=== PATIENT | female | born 1950 | race African-American/Black ===

== ENCOUNTER → 2017-07-14 | Outpatient (CLI) | payer OTHER | END | disposition home or self-care (01) | LOC: NM 08:35 | DX: R93.1 Abnormal findings on diagnostic imaging of heart and coronary circulation (principal); I10 Essential (primary) hypertension; E78.00 Pure hypercholesterolemia, unspecified | CPT/HCPCS: 78452; 93017; 96374; 96376; A9500 ==

== ENCOUNTER → 2017-12-28 | Outpatient (CLI) | payer OTHER ==
[2017-12-29 15:20] LABS: BASO % 1 % (0-3); EOS % 0 % (0-3); HEMATOCRIT 32.5 % (36.0-47.0); LYMPH # 0.9 x10^3/uL (1.0-4.8); LYMPH % 27 % (24-48); MEAN CORPUSCULAR HEMOGLOBIN 31 pg (25-35); MEAN CORPUSCULAR HGB CONC 34 g/dL (31-37); MEAN CORPUSCULAR VOLUME 91 fL (79-100); MONO # 0.5 x10^3/uL (0.0-1.1); MONO % 15 % (0-9); NEUT # 1.9 x10^3uL (1.8-7.7); NEUT % 57 % (31-73); PLATELET COUNT 201 x10^3/uL (140-400); RED BLOOD COUNT 3.56 x10^6/uL (3.50-5.40); RED CELL DISTRIBUTION WIDTH 13.8 % (11.5-14.5); WHITE BLOOD COUNT 3.4 x10^3/uL (4.0-11.0)
[2017-12-29 15:35] LABS: ALBUMIN 3.5 g/dL (3.4-5.0); CREATININE 1.5 mg/dL (0.6-1.0); GFR 41.7; PHOSPHORUS 3.1 mg/dL (2.6-4.7); POTASSIUM 4.5 mmol/L (3.5-5.1)
[2017-12-30 04:20] LABS: PHOSPHORUS PTH 2.7 mg/dL (2.5-4.5); PTH INTACT 75 pg/mL (15-65); TOTAL SERUM CREATININE 1.45 mg/dL (0.57-1.00); TOTAL URINE CREATININE 121.7 mg/dL (Not Estab.); UR PROTEIN 21.6 mg/dL (Not Estab.)
== END | disposition home or self-care (01) ==
LOC: LAB 10:36
PROVIDERS: ATTEND Internal Medicine Nephrology
DX: I12.9 Hypertensive chronic kidney disease with stage 1 through stage 4 chronic kidney disease, or unspecified chronic kidney disease (principal); E11.22 Type 2 diabetes mellitus with diabetic chronic kidney disease; N18.2 Chronic kidney disease, stage 2 (mild); E11.65 Type 2 diabetes mellitus with hyperglycemia; Z68.34 Body mass index [BMI] 34.0-34.9, adult
CPT/HCPCS: 36415; 80069; 82575; 83970; 84156; 85025

== ENCOUNTER → 2019-11-24 | Outpatient (CLI) | payer OTHER ==
--- NOTE | 2019-11-24 13:03 | CARD ---
MR#: [id number] Date of Study: 11/24/2019 Ordering Physician: VICTOR HUGO MCELROY, Referring Physician: VICTOR HUGO MCELROY, Tech: Johana Garcia [facility] APPROVED REPORT EXAM: Two-dimensional and M-mode echocardiogram with Doppler and color Doppler. Other Information Quality : Good INDICATION Hypertension/HCVD 2D DIMENSIONS RVDd2.7 (2.9-3.5cm)Left Atrium(2D)3.7 (1.6-4.0cm) IVSd1.5 (0.7-1.1cm)Aortic Root(2D)3.2 (2.0-3.7cm) LVDd5.0 (3.9-5.9cm)LVOT Diameter2.2 (1.8-2.4cm) PWd1.3 (0.7-1.1cm)LVDs3.1 (2.5-4.0cm) FS (%) 30.0 %SV77.8 ml Aortic Valve AoV Peak Sander.128.1cm/sAoV VTI25.5cm AO Peak GR.6.6mmHgLVOT Peak Sander.137.5cm/s AO Mean GR.3mmHgAVA (VMAX)4.07cm2 NAT (VTI)4.00cm2 Mitral Valve MV E Yeigibnb10.8cm/sMV DECEL GFHK359kn MV A Fjuayivh54.7cm/sE/A Ratio1.1 Tricuspid Valve TR P. Awirjrdq531gk/sRAP [id number] TR Peak Gr.17mzAeBSAZ89kwGr Pulmonary Vein S1 Ydqrbblu73.6cm/sD2 Cbeqlrir45.9cm/s LEFT VENTRICLE The left ventricle is normal size. There is mild concentric left ventricular hypertrophy. The left ve ntricular systolic function is normal and the ejection fraction is within normal range. The Ejection Fraction is 55-60%. There is normal LV segmental wall motion. Transmitral Doppler flow pattern is Gra de I-abnormal relaxation pattern. RIGHT VENTRICLE The right ventricle is normal size. The right ventricular systolic function is normal. ATRIA The left atrium size is normal. The right atrium size is normal. The interatrial septum is intact wit h no evidence for an atrial septal defect or patent foramen ovale as noted on 2-D or Doppler imaging. AORTIC VALVE The aortic valve is calcified but opens well. Doppler and Color Flow revealed no significant aortic r egurgitation. There is no significant aortic valvular stenosis. MITRAL VALVE The mitral valve is calcified but opens well. There is no evidence of mitral valve prolapse. There is no mitral valve stenosis. Doppler and Color-flow revealed trace to mild mitral regurgitation. TRICUSPID VALVE The tricuspid valve is normal in structure and function. Doppler and Color Flow revealed trace tricus pid regurgitation. The PA pressure was estimated at 24 mmHg. There is no tricuspid valve stenosis. PULMONIC VALVE The pulmonic valve is not well visualized. Doppler and Color Flow revealed trace pulmonic valvular re gurgitation. There is no pulmonic valvular stenosis. GREAT VESSELS The aortic root is normal in size. The ascending aorta is not well seen. The IVC is normal in size an d collapses >50% with inspiration. PERICARDIAL EFFUSION There is no evidence of significant pericardial effusion. Critical Notification Critical Value: No <Conclusion> The left ventricle is normal size. The left ventricular systolic function is normal and the ejection fraction is within normal range. The Ejection Fraction is 55-60%. There is mild concentric left ventricular hypertrophy. Doppler and Color Flow revealed no significant aortic regurgitation. There is no significant aortic valvular stenosis. Doppler and Color-flow revealed trace to mild mitral regurgitation. Doppler and Color Flow revealed trace tricuspid regurgitation. The PA pressure was estimated at 24 mmHg. Signed by : Victor Hugo Mcelroy MD Electronically Approved : 11/24/2019 13:02:50
== END | disposition home or self-care (01) ==
LOC: ECHO 08:46
PROVIDERS: ATTEND Internal Medicine Cardiovascular Disease
DX: I08.0 Rheumatic disorders of both mitral and aortic valves (principal)
CPT/HCPCS: 93306